=== PATIENT | female | born 1980 | race Asian ===

== ENCOUNTER 2019-06-03 09:08 | Outpatient (CLI) | payer OTHER | END 2019-06-03 09:09 | disposition home or self-care (01) | LOC: DTY/OP 09:08 | PROVIDERS: ATTEND Surgery | DX: E66.01 Morbid (severe) obesity due to excess calories (principal) | CPT/HCPCS: 97802 ==

== ENCOUNTER 2019-07-10 08:55 | Outpatient (CLI) | payer OTHER | END 2019-07-10 08:56 | disposition home or self-care (01) | LOC: DTY/OP 08:55 | PROVIDERS: ATTEND Family Medicine | DX: E66.01 Morbid (severe) obesity due to excess calories (principal) | CPT/HCPCS: 97802 ==

== ENCOUNTER 2019-07-17 12:21 | Emergency (ER) | payer OTHER ==
[2019-07-17 13:50] LABS: HIV (1/2) Antibody/Antigen Non-Reactive (NonReactive); HIV 1/2 INDEX 0.05 S/CO (<1.00); Hep C IgG Ab Non-Reactive (NonReactive); Hep C Index 0.11 S/CO (0-0.79)
[2019-07-17 14:33] LABS: HBSAB Concentration 1771.34 mIU/mL; Hep B Surf AB Reactive (NonReactive)
== END 2019-07-17 13:09 | disposition home or self-care (01) ==
LOC: ERS 12:21
DX: Z77.21 Contact with and (suspected) exposure to potentially hazardous body fluids (principal); E03.9 Hypothyroidism, unspecified; Z79.899 Other long term (current) drug therapy
CPT/HCPCS: 36415; 86706; 86803; 87389; 99283

== ENCOUNTER 2019-07-24 13:26 | Outpatient (CLI) | payer OTHER | END 2019-07-24 13:27 | disposition home or self-care (01) | LOC: DTY/OP 13:26 | PROVIDERS: ATTEND Surgery | DX: E66.01 Morbid (severe) obesity due to excess calories (principal) | CPT/HCPCS: 97802 ==

== ENCOUNTER 2019-07-26 17:16 | Outpatient (CLI) | payer OTHER ==
--- NOTE | 2019-07-26 18:15 | RAD ---
TWO VIEWS CHEST: 07/26/19 PROVIDED CLINICAL HISTORY: Preop. FINDINGS: Cardiac and mediastinal silhouette is within normal limits. Lungs appear clear. No pleural fluid or p neumothorax apparent. IMPRESSION: No evidence for an acute cardiopulmonary process. POS: ELAINE
[2019-07-26 18:39] LABS: Hemoglobin A1c 5.2 % (4.0-6.0)
[2019-07-26 18:52] LABS: ALT (SGPT) 29 U/L (8-55); AST (SGOT) 23 U/L (5-34); Albumin 4.2 g/dL (3.5-5.0); Alkaline Phosphatase 56 U/L (40-110); Anion Gap 12 mmol/L (10-20); BUN (Urea Nitrogen) 10 mg/dL (7.0-18.7); Bilirubin, Direct 0.1 mg/dL (0.1-0.3); Bilirubin, Total 0.3 mg/dL (0.2-1.2); Calc. Creatinine Clearance 0 mL/min (70-130); Calcium 8.8 mg/dL (7.8-10.44); Carbon Dioxide 24 mmol/L (22-29); Chloride 107 mmol/L (98-107); Estimated GFR-MDRD 86; Globulin 2.6 g/dL (2.4-3.5); Glucose 72 mg/dL (70-105); Potassium 4.2 mmol/L (3.5-5.1); Protein, Total 6.8 g/dL (6.0-8.3); Sodium 139 mmol/L (136-145)
[2019-07-26 19:10] LABS: Band 2 % (5-11); Eosinophils 1 % (0-10); Hemoglobin 14.1 g/dL (12.0-16.0); Lymphocytes 23 % (21-51); MDiff Complete? YES; Mean Corpuscular HGB CONC 34.9 g/dL (32.0-36.0); Mean Corpuscular Hemoglobin 31.4 pg (27.0-31.0); Mean Corpuscular Volume 90.2 fL (78.0-98.0); Mean Platelet Volume 6.9 fL (7.4-10.4); Monocytes 4 % (0-10); Neutrophil 40 % (42-75); Platelet Count 304 thou/uL (130-400); Platelet Morphology Comment Appears Adequate; RBC Distribution Width 11.4 % (11.5-14.5); RBC Morphology Normal; Reactive Lymphocytes 30 % (0-10); Red Blood Cell (RBC) Count 4.49 mill/uL (4.20-5.40); White Blood Cell (WBC) Count 7.9 thou/uL (4.8-10.8)
--- NOTE | 2019-07-29 16:47 | EKG ---
Test Reason : Blood Pressure : / mmHG Vent. Rate : 059 BPM Atrial Rate : 059 BPM P-R Int : 146 ms QRS Dur : 094 ms QT Int : 420 ms P-R-T Axes : 048 031 027 degrees QTc Int : 415 ms Sinus bradycardia with sinus arrhythmia Otherwise normal ECG No previous ECGs available Confirmed by DR. Lane NUNEZ ([id number]) on 07/29/2019 4:46:42 PM Referred By: KARSON Confirmed By:DR. Lane NUNEZ
== END 2019-07-26 17:17 | disposition home or self-care (01) ==
LOC: LABBT 17:16
PROVIDERS: ATTEND Surgery
DX: Z01.818 Encounter for other preprocedural examination (principal); E66.01 Morbid (severe) obesity due to excess calories
CPT/HCPCS: 71046; 80053; 82248; 83036; 85025; 93005; 93010

== ENCOUNTER 2019-07-30 08:35 | Inpatient (IN) | payer OTHER ==
[2019-07-26 18:22] VITALS: BMI 35.9
[2019-07-30] MEDS ORDERED: Midazolam HCl 2 mg/2 ml Vial ONE (10:06)
[2019-07-30] MEDS ORDERED: PROPOFOL 200 MG/20 ML VIAL ONE (10:57)
[2019-07-30] MEDS ORDERED: Ondansetron PF 4 MG/2 ML Vial ONE (10:57)
[2019-07-30] MEDS ORDERED: Lidocaine 1% PF 5 ML VIAL ONE (10:57)
[2019-07-30] MEDS ORDERED: Glycopyrrolate 0.2 MG/ML 5 ML SYRINGE ONE (10:57)
[2019-07-30] MEDS ORDERED: ePHEDrine/0.9% NaCl/PF SYRINGE 50 mg/10 ml ONE (10:57)
[2019-07-30] MEDS ORDERED: Rocuronium Bromide 10 MG/ML (10ML VIAL) ONE (10:57)
[2019-07-30] MEDS ORDERED: Bupivacaine HCl 0.5%/Epinephrine 1:200,000/PF 30 ml Vial ONE (11:31)
[2019-07-30] MEDS ORDERED: Fentanyl 250 MCG/5 ML VIAL ONE (11:31)
[2019-07-30] MEDS ORDERED: Heparin 5,000 UNITS/ML VIAL ONE (11:43)
[2019-07-30] MEDS ORDERED: Fentanyl 100 MCG/2 ML VIAL ONE ×3 (13:00→14:31)
[2019-07-30] MEDS ORDERED: Promethazine HCl 25 MG/ML VIAL ONE (13:12)
[2019-07-30] MEDS ORDERED: diphenhydrAMINE 50 MG/ML VIAL IM PRN (14:21)
[2019-07-30] MEDS ORDERED: diphenhydrAMINE 25 MG CAP PO PRN (14:21)
[2019-07-30] MEDS ORDERED: Ondansetron PF 4 MG/2 ML Vial IVP PRN ×2 (14:21→15:19)
[2019-07-30] MEDS ORDERED: Promethazine HCl 25 MG/ML VIAL IM PRN ×2 (14:21→15:19)
[2019-07-30] MEDS ORDERED: diphenhydrAMINE 50 MG/ML VIAL IVP PRN ×2 (14:21→15:19)
[2019-07-30] MEDS ORDERED: Naloxone HCl 0.4 mg/ml Vial IV PRN (14:21)
[2019-07-30] MEDS ORDERED: Zolpidem Tartrate 5 MG TAB PO PRN (14:21)
[2019-07-30] MEDS ORDERED: fentaNYL Citrate/PF 2,000 MCG in Sodium Chloride 0.9% 60 ML IV PRN (14:21)
[2019-07-30] MEDS ORDERED: Communication Order-Pharmacy FS SCH (14:30)
--- NOTE | 2019-07-30 14:47 | OP ---
DATE OF PROCEDURE: 07/30/2019 PREOPERATIVE DIAGNOSES: Morbid obesity with a body mass index of 43, hyperlipidemia. POSTOPERATIVE DIAGNOSES: Morbid obesity with a body mass index of 43, hyperlipidemia. PROCEDURES PERFORMED: 1. Laparoscopic sleeve gastrectomy, [place] staple line reinforcements and 38-[place] bougie. 2. Esophagogastroduodenoscopy. ANESTHESIA: General. ESTIMATED BLOOD LOSS: Minimal. COMPLICATIONS: None. SPECIMENS: Stomach. FINDINGS: Normal postoperative EGD. TECHNIQUE: The patient was taken to the operating room and placed supine on the operating room table. After general anesthetic was obtained, the arms and legs were double strapped to bariatric table. OG tube was used to decompress the stomach. The abdomen was prepped and draped in a sterile fashion. Left subcostal 5 mm Optiview trocar was placed in the usual fashion. High-flow pneumoperitoneum was obtained. Left and right abdominal 12 mm ports were placed as well as a right subcostal 5 mm port. The patient was placed in reverse Trendelenburg position. A 5 mm incision made at the xiphoid and Gina was used to raise the liver off the GE junction. Short gastrics were taken down from mid body of stomach to left angus of diaphragm. Left angus, posterior fundus, angle of His were completely dissected. Short gastrics were taken down to a distance of 6 cm proximal to the pylorus. Multiple loads of the [place] stapling device with [place] staple line reinforcements were used to perform the sleeve. The first fired up at a distance 6 cm proximal to the pylorus angled up towards the incisura. Care was taken to avoid being too close to incisura. Multiple loads were then fired up along the bougie. Stomach was completely transected at the angle of His. Stomach was removed from the left abdominal incision. This fascial defect was closed using GraNee needle and Vicryl tie. All port sites were infiltrated using local anesthetic. EGD scope was passed through the esophagus, stomach to the level of duodenum without obstruction. No stricture at the incisura. EGD was used to decompress the stomach. All port sites were infiltrated using local anesthetic. All ports were removed under camera visualization. Pneumoperitoneum was let down. Vicryl was close the fascial defect from the left abdominal incisions. All incisions were irrigated and closed using 4-0 Monocryl and Dermabond. The patient was sent to Recovery in stable condition. All instrument counts, needle counts, and lap counts were correct. Job ID: [id number]
[2019-07-30] MEDS ORDERED: Dextrose 50% Abboject 50 ML SYRINGE SLOW IVP PRN (15:19)
[2019-07-30] MEDS ORDERED: Hydrocodone-Acetamin 15 ML UDCUP PO PRN (15:19)
[2019-07-30] MEDS ORDERED: Dextrose 5% in Water 1,000 ML IV PRN (15:19)
[2019-07-30] MEDS ORDERED: hydrALAZINE 20 MG/ML VIAL SLOW IVP PRN (15:19)
[2019-07-30] MEDS: Acetaminophen 1,000 MG in Premix Bag 1 BAG IVPB SCH ×2 (16:56→22:44)
[2019-07-30] MEDS: D5 1/2 NS w/20 mEq KCL 1,000 ML IV SCH ×2 (18:48→22:45)
[2019-07-30] MEDS ORDERED: Enoxaparin Sodium 40 MG/0.4 ML SYRINGE SC SCH (21:00)
[2019-07-31] MEDS: Acetaminophen 1,000 MG in Premix Bag 1 BAG IVPB SCH ×2 (03:30→09:47)
[2019-07-31] MEDS: D5 1/2 NS w/20 mEq KCL 1,000 ML IV SCH (03:30)
[2019-07-31 05:31] LABS: #Lymphocytes 1.9 thou/uL (1.20-3.40); #Monocytes 0.6 thou/uL (0.11-0.59); #Neutrophils 9.2 thou/uL (1.40-6.50); %Basophils 0.2 % (0.0-1.0); %Eosinophils 0.1 % (0.0-10.0); %Lymphocytes 16.4 % (21.0-51.0); %Monocytes 5.4 % (0.0-10.0); Hemoglobin 14.1 g/dL (12.0-16.0); Mean Corpuscular HGB CONC 34.7 g/dL (32.0-36.0); Mean Corpuscular Hemoglobin 30.9 pg (27.0-31.0); Mean Platelet Volume 6.9 fL (7.4-10.4); Platelet Count 295 thou/uL (130-400); RBC Distribution Width 11.3 % (11.5-14.5); Red Blood Cell (RBC) Count 4.55 mill/uL (4.20-5.40); White Blood Cell (WBC) Count 11.7 thou/uL (4.8-10.8)
[2019-07-31 05:45] LABS: Anion Gap 13 mmol/L (10-20); BUN (Urea Nitrogen) 5 mg/dL (7.0-18.7); Calc. Creatinine Clearance 153 mL/min (70-130); Calcium 8.7 mg/dL (7.8-10.44); Carbon Dioxide 22 mmol/L (22-29); Chloride 103 mmol/L (98-107); Estimated GFR-MDRD Greater than 90; Glucose 129 mg/dL (70-105); Potassium 3.8 mmol/L (3.5-5.1); Sodium 134 mmol/L (136-145)
[2019-07-31 08:01] VITALS: BP 150/88; TEMP 98.6
[2019-07-31] MEDS ORDERED: Pantoprazole 40 MG VIAL IVP SCH (09:00)
== END 2019-07-31 10:55 | disposition home or self-care (01) | DRG 621 ==
LOC: SURG A 08:41
PROVIDERS: ADMIT Surgery; ATTEND Surgery
PROC: 0DB64Z3 Excision of Stomach, Percutaneous Endoscopic Approach, Vertical (ICD-10-PCS; principal; 2019-07-30)
DX: E66.01 Morbid (severe) obesity due to excess calories (principal); E78.5 Hyperlipidemia, unspecified; Z68.41 Body mass index [BMI] 40.0-44.9, adult; Z79.890 Hormone replacement therapy; E03.9 Hypothyroidism, unspecified
CPT/HCPCS: 36415; 80048; 85025; 88307; 88312; 94760; C9113; J0131; J0670; J0690; J1644; J1650; J2001; J2250; J2405; J2550; J2704; J3010